=== PATIENT | female | born 1945 | race Caucasian/White ===

== ENCOUNTER → 2018-11-08 07:59 | Outpatient (CLI) | payer MEDICARE, SELFPAY ==
--- NOTE | 2018-11-08 10:47 | NEURO_ITS ---
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 Previously wrist splints were of benefit but lost efficacy. He is healthy otherwise. Right upper extremity sensory and motor nerve conduction study demonstrates moderate to severe prolongation of the median motor and sensory distal latencies with reduction of the motor amplitudes and conduction velocities. The ulnar motor and sensory and radial sensory responses are normal. The median F wave latency is prolonged compared to the ulnar F-wave latency. Right upper extremity needle electromyography is performed. Muscles evaluated included the first interosseous, abductor pollicis brevis, brachioradialis, biceps, triceps and deltoid muscles. All muscles demonstrated normal insertional activity with absence of pathologic spontaneous activity and normal motor unit recruitment pattern as well as amplitude with the exception of the right abductor pollicis brevis muscle which did demonstrate 1-2+ fibrillation potentials with increased insertional activity and early motor unit recruitment with large motor units. Impression: Abnormal electrophysiologic study of the right upper extremity consistent with moderate to severe carpal tunnel syndrome on the right.
== END ==
PROVIDERS: Family Provider Family Medicine; PCP Family Medicine; Referring Provider Family Medicine; Visit Provider Family Medicine
DX: M79.641 Pain in right hand (principal)
CPT/HCPCS: 95886; 95909

== ENCOUNTER → 2018-12-29 11:12 | Outpatient (CLI) | payer MEDICARE, SELFPAY ==
--- NOTE | 2018-12-29 11:31 | EKG12_ITS ---
Test Reason : PREOP Blood Pressure : / mmHG Vent. Rate : 064 BPM Atrial Rate : 064 BPM P-R Int : 160 ms QRS Dur : 084 ms QT Int : 408 ms P-R-T Axes : 058 022 017 degrees QTc Int : 420 ms Normal sinus rhythm Normal ECG Confirmed by JD ZARAGOZA ([id number]), assignment editor LEXIE BARRON ([id number]) on 01/02/2019 2:21:46 PM Referred By: Ray Cervantes Confirmed By:DWAIN ZARAGOZA
[2018-12-29 11:43] LABS: Hematocrit 42.2 % (37-47); Hemoglobin 13.9 g/dl (12.0-15.0); Mean Corp Hgb Conc 32.9 g/gl (32-36); Mean Corpuscular Hgb 30.2 pg (27.0-32.0); Mean Corpuscular Volume 91.7 fL (81-99); Mean Platelet Vol. 11.7 fl (6.2-12.0); Platelet Count 244 K/mm3 (150-450); RBC Distribution Width SD 43.5 fl (35.1-43.9); White Blood Count 5.9 K/mm3 (4.4-11.0)
[2018-12-29 11:46] LABS: Scan Indicated on CBC? Y/N NO
[2018-12-29 12:06] LABS: Anion Gap 6 (5-15); BUN 18 mg/dL (7-18); BUN/Creat Ratio 22.8 RATIO (10-20); Calcium,Total 9.5 mg/dL (8.5-10.1); Chloride 109 mmol/L (98-107); Creatinine, Serum 0.79 mg/dL (0.55-1.02); EST Glomerular Filtration Rate 76 mL/min (>60); Est Glom Filt Rate - Afr Amer 92 mL/min (>60); Glucose 88 mg/dL (74-106); Sodium Level 141 mmol/L (136-145)
== END ==
PROVIDERS: Family Provider Family Medicine; PCP Family Medicine; Referring Provider Physician Assistant; Visit Provider Physician Assistant
DX: Z01.818 Encounter for other preprocedural examination (principal); Z01.810 Encounter for preprocedural cardiovascular examination
CPT/HCPCS: 36415; 80048; 85027; 93005